=== PATIENT | female | born 1970 | race Hispanic/Latino ===

== ENCOUNTER 2018-02-13 20:55 | Observation (INO) | payer OTHER ==
[~2018-02-13] VITALS: Ht 160 cm; Wt 153.1 kg
[2018-02-13 21:49] LABS: BASOPHILS % 0.4 % (0.0-1.0); EOSINOPHILS # (AUTO) 0.2 (0.0-0.4); EOSINOPHILS % 1.5 % (0.0-6.0); HEMATOCRIT 40.6 % (34.2-44.1); HEMOGLOBIN 13.4 g/dL (12.0-16.0); LYMPHOCYTES # (AUTO) 3.3 (1.0-3.2); LYMPHOCYTES % 32.7 % (18.0-39.1); MEAN CORPUSCULAR VOLUME 90.8 fL (81-99); MONOCYTES # (AUTO) 0.6 (0.2-0.8); MONOCYTES % 6.2 % (4.4-11.3); NEUTROPHILS # (AUTO) 5.9 (2.1-6.9); NEUTROPHILS % 58.8 % (38.7-80.0); PLATELET COUNT 307 x10e3/uL (140-360); RED BLOOD COUNT 4.47 x10e6/uL (3.6-5.1); RED CELL DISTRIBUTION WIDTH 13.6 % (11.7-14.4)
--- NOTE | 2018-02-13 21:53 | Diagnostic Imaging Report ---
EXAMINATION: Head CT HISTORY: Syncope. COMPARISON: None. TECHNIQUE: Multidetector axial images were obtained without contrast from the foramen magnum to the vertex . The images were reconstructed using brain and bone algorithms. Thin section brain images were reformatted into coronal and sagittal planes. Motion/streaking artifact limits the evaluation of the skull base and posterior cranial fossa. FINDINGS: Parenchyma: 1. No abnormal densities. 2. No mass or hemorrhage. No CT evidence of acute territorial vascular insult. Extra-axial spaces:No abnormal density. No extra-axial fluid collections Brain volume: Normal for age. Ventricles: No hydrocephalus or displacement. Arteries: No density suggestive of thrombus. Dural sinuses: No abnormal density. Extra-axial spaces: No abnormal density. Foramen magnum: No mass, Chiari malformation, or basilar invagination. Sella: No obvious mass. Paranasal/mastoid sinuses: Imaged portions unremarkable. Skull/Scalp: No lytic or blastic lesions. No fractures. IMPRESSION: Normal head CT. Signed by: Dr. Isha Louis M.D. on 02/13/2018 9:49 PM
[2018-02-13 22:07] LABS: ALANINE AMINOTRANSFERASE 23 IU/L (0-55); ALBUMIN 3.2 g/dL (3.5-5.0); ALBUMIN/GLOBULIN RATIO 0.7 (0.8-2.0); ALKALINE PHOSPHATASE 130 IU/L (40-150); ANION GAP 15.9 mmol/L (8-16); BLOOD UREA NITROGEN 17 mg/dL (7-26); BUN/CREATININE RATIO 21 (6-25); CARBON DIOXIDE 23 mmol/L (22-29); CHLORIDE 105 mmol/L (98-107); CREATINE KINASE 89 IU/L (29-168); CREATININE, SERUM 0.82 mg/dL (0.57-1.11); EST GLOMERULAR FILTRATION RATE > 60 ML/MIN (60-); GLUCOSE 92 mg/dL (74-118); POTASSIUM 3.9 mmol/L (3.5-5.1); SODIUM 140 mmol/L (136-145)
--- NOTE | 2018-02-13 22:20 | Diagnostic Imaging Report ---
EXAMINATION: CHEST SINGLE (PORTABLE) INDICATION: Syncopal episode COMPARISON: None FINDINGS: TUBES and LINES: None. LUNGS: Lungs are not well inflated. There are bibasilar atelectasis. There is mild prominence of the central pulmonary vasculature, consistent with pulmonary venous congestion. PLEURA: No pleural effusion or pneumothorax. HEART AND MEDIASTINUM: The cardiomediastinal silhouette is unremarkable. BONES AND SOFT TISSUES: No acute osseous lesion. Soft tissues are unremarkable. UPPER ABDOMEN: No free air under the diaphragm. IMPRESSION: No acute thoracic abnormality. Signed by: Dr. Roge Williamson M.D. on 02/13/2018 10:17 PM
[2018-02-13] MEDS ORDERED: SODIUM CHLORIDE FLUSH 10 ML SYR INJ PRN (23:15)
[2018-02-13] MEDS ORDERED: ONDANSETRON HCL INJ 2 MG/ML VIAL IV PRN (23:15)
[2018-02-13] MEDS ORDERED: ASPIRIN 81 MG CHEW TAB PO ONE (23:15)
--- OUTSIDE RECORDS SUMMARY | 2018-02-13 23:35 | XMS REPORT ---
[facility] Address Unknown Phone Unavailable Care Team Providers Care English As A Second Language Instructor Name Role Phone DARINEL BROWNLEE Unavailable Unavailable Problems This patient has no known problems. Allergies, Adverse Reactions, Alerts This patient has no known allergies or adverse reactions. Medications This patient has no known medications. Results Test Description Test Time Test Comments Text Results Atomic Results Result Comments CT BRAIN WO [place] [address] Patient Name: MACK ULLOA MR #: [id number] : 1970 Age/Sex: 47/F Req #: [id number] Adm Physician: Ordered by: DARINEL BROWNLEE MD Report #: [id number] Location: ER Room/Bed: ___ Procedure: [id number] CT/CT BRAIN WO Exam Date: 02/13/18 Exam Time: 2129 REPORT STATUS: Signed EXAMINATION: Head CT HISTORY: Syncope. COMPARISON: None. TECHNIQUE: Multidetector axial images were obtained without contrast from the foramen magnum to the vertex . The images were reconstructed using brain and bone algorithms. Thin section brain images were reformatted into coronal and sagittal planes. Motion/streaking artifact limits the evaluation of the skull base and posterior cranial fossa. FINDINGS: Parenchyma: 1. No abnormal densities. 2. No mass or hemorrhage. No CT evidence of acute territorial vascular insult. Extra-axial spaces:No abnormal density. No extra-axial fluid collections Brain volume: Normal for age. Ventricles: No hydrocephalus or displacement. Arteries: No density suggestive of thrombus. Dural sinuses: No abnormal density. Extra-axial spaces: No abnormal density. Foramen magnum: No mass, Chiari malformation, or basilar invagination. Sella: No obvious mass. Paranasal/mastoid sinuses: Imaged portions unremarkable. Skull/ Scalp: No lytic or blastic lesions. No fractures. IMPRESSION: Normal head CT. Signed by: Dr. Brandon Louis M.D. on 02/13/2018 9:49 PM Dictated By: BRANDON LOUIS MD 48 COPY TO: DARINEL BROWNLEE MD CHEST SINGLE (PORTABLE) [place] [address] Patient Name: MACK ULLOA MR #: [id number] : 1970 Age/Sex: 47/F Req #: [id number] Adm Physician: Ordered by: DARINEL BROWNLEE MD Report #: [id number] Location: ER Room/Bed: ___ Procedure: [id number] DX/CHEST SINGLE (PORTABLE) Exam Date: 02/13/18 Exam Time: 2129 REPORT STATUS: Signed EXAMINATION: CHEST SINGLE (PORTABLE) INDICATION: Syncopal episode COMPARISON: None FINDINGS: TUBES and LINES: None. LUNGS: Lungs are not well inflated. There are bibasilar atelectasis. There is mild prominence of the central pulmonary vasculature, consistent with pulmonary venous congestion. PLEURA: No pleural effusion or pneumothorax. HEART AND MEDIASTINUM: The cardiomediastinal silhouette is unremarkable. BONES AND SOFT TISSUES: No acute osseous lesion. Soft tissues are unremarkable. UPPER ABDOMEN: No free air under the diaphragm. IMPRESSION: No acute thoracic abnormality. Signed by: Dr. Roge Williamson M.D. on 02/13/2018 10:17 PM Dictated By: ROGE ELIZONDO MD 16 COPY TO: DARINEL BROWNLEE MD
[2018-02-14] VITALS (7 sets, daily range): BP systolic 109–122; BP diastolic 53–71
[2018-02-14 00:09] LABS: CLARITY,URINE SL CLOUDY (CLEAR); COLOR,URINE AMBER (YELLOW); KETONES,URINE NEGATIVE (NEGATIVE); LEUKOCYTE ESTERASE ,URINE NEGATIVE (NEGATIVE); NITRITE,URINE NEGATIVE (NEGATIVE); PROTEIN,URINE DIPSTICK 1+ (NEGATIVE)
[2018-02-14 00:10] LABS: AMPHETAMINES SCREEN,URINE NEGATIVE (NEGATIVE); BENZODIAZEPINES SCREEN,URINE NEGATIVE (NEGATIVE); BILIRUBIN,URINE NEGATIVE (NEGATIVE); PHENCYCLIDINE SCREEN,URINE NEGATIVE (NEGATIVE); URINE UROBILINOGEN 0.2 mg/dL (0.2 - 1); WBC,URINE (MAN) 0-5 /HPF (0-5)
[2018-02-14 00:11] LABS: BACTERIA,URINE RARE /HPF; EPITHELIAL CELLS,URINE FEW /LPF; RBC,URINE 21-50 /HPF (0-5)
[2018-02-14] MEDS ORDERED: AMLODIPINE BESYL5 MG PO (02:05)
[2018-02-14] MEDS ORDERED: TENORMIN50 MG PO (02:05)
[2018-02-14] MEDS ORDERED: ASPIRIN81 MG PO (02:05)
[2018-02-14 05:43] LABS: BASOPHILS % 0.2 % (0.0-1.0); EOSINOPHILS # (AUTO) 0.1 (0.0-0.4); EOSINOPHILS % 1.5 % (0.0-6.0); HEMATOCRIT 38.6 % (34.2-44.1); HEMOGLOBIN 12.7 g/dL (12.0-16.0); LYMPHOCYTES # (AUTO) 2.8 (1.0-3.2); LYMPHOCYTES % 32.6 % (18.0-39.1); MEAN CORPUSCULAR HEMOGLOBIN 29.5 pg (28-32); MEAN CORPUSCULAR HGB CONC 32.9 g/dL (31-35); MEAN CORPUSCULAR VOLUME 89.6 fL (81-99); MONOCYTES # (AUTO) 0.5 (0.2-0.8); MONOCYTES % 5.6 % (4.4-11.3); NEUTROPHILS # (AUTO) 5.1 (2.1-6.9); NEUTROPHILS % 59.9 % (38.7-80.0); PLATELET COUNT 282 x10e3/uL (140-360); RED BLOOD COUNT 4.31 x10e6/uL (3.6-5.1); RED CELL DISTRIBUTION WIDTH 13.4 % (11.7-14.4)
[2018-02-14 06:06] LABS: ALANINE AMINOTRANSFERASE 21 IU/L (0-55); ALBUMIN 2.8 g/dL (3.5-5.0); ALBUMIN/GLOBULIN RATIO 0.7 (0.8-2.0); ALKALINE PHOSPHATASE 115 IU/L (40-150); ANION GAP 11.7 mmol/L (8-16); BLOOD UREA NITROGEN 15 mg/dL (7-26); BUN/CREATININE RATIO 24 (6-25); CALCIUM 8.5 mg/dL (8.4-10.2); CARBON DIOXIDE 25 mmol/L (22-29); CHLORIDE 106 mmol/L (98-107); CREATININE, SERUM 0.63 mg/dL (0.57-1.11); EST GLOMERULAR FILTRATION RATE > 60 ML/MIN (60-); GLUCOSE 110 mg/dL (74-118); POTASSIUM 3.7 mmol/L (3.5-5.1); SODIUM 139 mmol/L (136-145)
[2018-02-14 06:47] LABS: CREATINE KINASE 72 IU/L (29-168)
[2018-02-14] MEDS ORDERED: ACETAMINOPHEN 325 MG TAB PO PRN (07:30)
[2018-02-14] MEDS: ASPIRIN 81 MG CHEW TAB PO SCH (08:18)
[2018-02-14] MEDS: AMLODIPINE BESYLATE 5 MG TAB PO SCH ×2 (08:19→16:58)
[2018-02-14] MEDS: ATENOLOL 50 MG TAB PO SCH (08:19)
[2018-02-14 08:22] LABS: CHOL/HDL RATIO 5.4 (3.0-3.6)
[2018-02-14 08:36] LABS: THYROID STIMULATING HORMONE 2.742 uIU/mL (0.350-4.940)
--- NOTE | 2018-02-14 09:04 | Consultation ---
DATE OF CONSULTATION: February 13, 2018 CARDIOLOGY CONSULTATION REQUESTING PHYSICIAN: Dr. Garcia REASON FOR CONSULTATION: Syncope. HPI: This is a morbidly obese, 47-year-old female that presented with syncope. According to the patient, she was sitting down watching TV when she suddenly blacked out and was unresponsive for a few seconds. She stated her and son were at the bedside trying to wake her up. She did not fall. She was brought to the emergency room for evaluation. She has a history of high blood pressure and was on Norvasc and atenolol at home. She denies any chest pain, any palpitations, any dizziness, shortness of breath or diaphoresis. Troponin times [address] negative[address] showed no [address] abnormalities. She also complained of lightheadedness before the episode. PAST MEDICAL HISTORY: High blood pressure. SURGICAL HISTORY: . FAMILY HISTORY: Noncontributory. SOCIAL HISTORY: No smoking. No drinking. She lives at home with the son and fiancee. MEDICATIONS: She was on aspirin, atenolol and Norvasc at home. ALLERGIES: SHE IS NOT ALLERGIC TO ANY MEDICATION. REVIEW OF SYSTEMS: Negative, except as mentioned above. PHYSICAL EXAMINATION VITAL SIGNS: Temperature 97, heart rate 66, blood pressure 119/53, respirations 18, oxygen saturation 98% on room air. GENERAL: She is morbidly obese, awake, alert and oriented times 3. HEENT: Mucous membranes are moist. NECK: Supple. LUNGS: Bilaterally clear to auscultation. CARDIOVASCULAR: S1 and S2 present. ABDOMEN: Soft. NEUROLOGIC: Intact. EXTREMITIES: No edema. LABS: Sodium 139, potassium 3.7, chloride 106, CO2 25, BUN 16, creatinine 0.63, glucose 110. White blood cells 8.56, hemoglobin 12.7, hematocrit 38.6, platelets 282. IMPRESSION 1. Syncope. 2. High blood pressure. 3. Obesity. 4. Headache. ASSESSMENT AND PLAN: She had a CT of the head done that was normal. She also had a chest x-ray done with no abnormality. We will go ahead and get an echocardiogram to assess the LV and valve functions. We will also get bilateral carotid Doppler to rule out any occlusion. Continue her home medications. Check TSH and lipid panel. She might have possible vagal stimulation from the blood pressure dropping too suddenly from position change. She was counseled on weight reduction. Further cardiac workup pending clinical course. Thank you for this consultation. Dictated by Cayla Le NP Job#: [id number] MH
[2018-02-14 15:31] LABS: CREATINE KINASE 71 IU/L (29-168)
[2018-02-15] VITALS (7 sets, daily range): BP systolic 112–120; BP diastolic 56–69
[2018-02-15] MEDS: AMLODIPINE BESYLATE 5 MG TAB PO SCH (08:27)
[2018-02-15] MEDS: ATENOLOL 50 MG TAB PO SCH (08:27)
[2018-02-15] MEDS: ASPIRIN 81 MG CHEW TAB PO SCH (08:27)
[2018-02-15] MEDS ORDERED: ATORVASTATIN CA20 MG PO (13:43)
== END 2018-02-15 14:02 | disposition home or self-care (01) ==
LOC: ER 20:55 → ERHOLD 23:32 → MED/SURG 02-14 00:15
PROVIDERS: ADMIT Internal Medicine; ATTEND Internal Medicine
DX: R55 Syncope and collapse (principal); I10 Essential (primary) hypertension; E66.9 Obesity, unspecified; Z68.43 Body mass index [BMI] 50.0-59.9, adult; R51 Headache; R31.9 Hematuria, unspecified; E78.5 Hyperlipidemia, unspecified; D64.9 Anemia, unspecified
CPT/HCPCS: 36415 ×2; 70450; 71045; 80053 ×2; 80061; 80307; 81001; 82550 ×2; 82553 ×2; 84443; 84484 ×2; 85025 ×2; 93005 ×2; 93306; 93880; 96360; 97139; 99285; G0378 ×3

== ENCOUNTER 2020-07-20 06:27 | Emergency (ER) | payer OTHER ==
[~2020-07-20] VITALS: Ht 160 cm; Wt 152.9 kg
[~2020-07-20 06:27] MED LIST: AMLODIPINE BESYL5 MG PO; ASPIRIN81 MG PO; ATORVASTATIN CA20 MG PO; TENORMIN50 MG PO
[2020-07-20] MEDS ORDERED: IBUPROFEN 600 MG TAB PO STA (06:35)
--- NOTE | 2020-07-20 06:40 | Emergency Department Note ---
History of Present Illnes History of Present Illness Chief Complaint: Extremity Trauma/Pain History of Present Illness This is a 50 year old female Chief Complaint Comment Patient c/o bilateral knee weakness that started last night. Patient states she feels a tingling senation down right knee. Patient states when she got up this morning she felt like her knees were going to give out. Patient did take meloxicam last night. Patient able to ambulate with cane. No bowel/bladder issues/ She has ad this before and was told is was arthritis. Historian: Patient Arrival Mode: Car Warp Hand Required: No Onset (how long ago): day(s) (1) Location: Knees Quality: dull Radiation: Reports non-radiation Severity: mild Onset quality: gradual Duration (how long): hour(s) (1) Timing of current episode: intermittent Progression: partially resolved Chronicity: recurrent Context: Denies recent illness, Denies recent surgery Relieving factors: none Exacerbating factors: none Associated symptoms: Reports denies other symptoms Treatments prior to arrival: none Past Medical/Family History Physician Review I have reviewed the patient's past medical and family history. Any updates have been documented here. Past Medical History Recent Fever: No Clinical Suspicion of Infectio: No New/Unexplained Change in Ment: No Past Medical History: Hypertension, Hyperlipedemia Past Surgical History: Hysterectomy, Other Surgery: I&D OF A CYST Other Last Tetanus: UTD Review of Systems Review of Systems Constitutional: Reports no symptoms EENTM: Reports no symptoms Cardiovascular: Reports no symptoms Respiratory: Reports no symptoms Gastrointestinal: Reports no symptoms Genitourinary: Reports no symptoms Musculoskeletal: Reports as per HPI, Reports other (Knee pain bilateral R>L) Integumentary: Reports no symptoms Neurological: Reports no symptoms Psychological: Reports no symptoms Endocrine: Reports no symptoms Hematological/Lymphatic: Reports no symptoms Physical Exam Related Data Allergies: Coded Allergies: No Known Allergies (Unverified , 02/13/18) Triage Vital Signs Vital Signs Date Time Temp Pulse Resp B/P (MAP) Pulse Ox O2 Delivery O2 Flow Rate FiO2 07/20/20 06:30 98.0 88 20 189/100 95 Room Air Vital signs reviewed: Yes Physical Exam CONSTITUTIONAL Constitutional: Present well-developed, Present well-nourished HENT HENT: Present normocephalic, Present atraumatic, Present oropharynx clear/moist, Present nose normal HENT L/R: Present left ext ear normal, Present right ext ear normal EYES Eyes: Reports PERRL, Reports conjunctivae normal NECK Neck: Present ROM normal PULMONARY Pulmonary: Present effort normal, Present breath sounds normal CARDIOVASCULAR Cardiovascular: Present regular rhythm, Present heart sounds normal, Present capillary refill normal, Present normal rate GASTROINTESTINAL Abdominal: Present soft, Present nontender, Present bowel sounds normal GENITOURINARY Genitourinary: Present exam deferred SKIN Skin: Present warm, Present dry MUSCULOSKELETAL Musculoskeletal: Present ROM normal, Present other (Pulses 2+/euqal in BLE. No erythema or warm. No pain will passive ROM); Absent tenderness, Absent swelling NEUROLOGICAL Neurological: Present alert, Present oriented x 3, Present no gross motor or sensory deficits PSYCHOLOGICAL Psychological: Present mood/affect normal, Present judgement normal Assessment & Plan Medical Decision Making MDM 50-year-old female presents for bilateral knee pain, right greater than left. She states that this started last night and she tried meloxicam which moderately helped. She states the last time this is happened it was due to arthritis. Denies bowel or bladder issues. Diagnosis considered includes that he kind versus herniated disc versus arthritis versus acute osseous injury. Examination is largely unremarkable. X-rays of the knees bilaterally are additionally unremarkable. Diagnosis favors arthritis. She was given ibuprofen and Tylenol wi th moderate relief for symptoms. Instructed her on following up with primary care doctor and taking her meloxicam in addition to Tylenol for breakthrough pain. Patient states cream and plan she is appropriate for discharge. Reassessment Reassessment time: 06:40 Reassessment Well appearing, NAD Assessment & Plan Final Impression: (1) Knee pain Depart Disposition: HOME, SELF-CARE Last Vital Signs Date Time Temp Pulse Resp B/P (MAP) Pulse Ox O2 Delivery O2 Flow Rate FiO2 07/20/20 06:30 98.0 88 20 189/100 95 Room Air Home Meds Reported Medications Atorvastatin Calcium (ATORVASTATIN CALCIUM) 20 Mg Tablet, 20 MG PO HS, #30 TAB 02/15/18 Aspirin (ASPIRIN) 81 Mg Tab.chew, 81 MG PO DAILY 02/14/18 Amlodipine Besylate (AMLODIPINE BESYLATE) 5 Mg Tablet, 5 MG PO BID, #30 TAB 02/14/18 Atenolol (TENORMIN) 50 Mg Tablet, 25 MG PO DAILY, #30 TAB 02/14/18 LYNETTE CHACON MD Jul 20, 2020 06:40
[2020-07-20] MEDS ORDERED: ACETAMINOPHEN 325 MG TAB PO ONE (06:45)
--- NOTE | 2020-07-20 06:53 | NUR ---
Report to WALI Lizama
--- NOTE | 2020-07-20 07:51 | Diagnostic Imaging Report ---
X-ray right knee 3 views X-ray left knee 3 views HISTORY: Pain. COMPARISON: None available. FINDINGS: Bones: No acute displaced fracture. Osseous alignment is within normal limits. Joints: Medial tibiofemoral joint space Bilateral knee tricompartmental degenerative changes. Soft tissues: The soft tissues appear unremarkable. IMPRESSION: Bilateral knee degenerative changes, worst in the right knee medial tibiofemoral compartment. Signed by: Sukh Horton DO on 07/20/2020 7:48 AM
--- OUTSIDE RECORDS SUMMARY | 2020-07-20 08:18 | XMS REPORT | Continuity of Care Document ---
Author Author [facility] t Organization [facility] Address 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 Attphys Unavailable Mahendra BROWNLEE Attphys Unavailable Payers Payer Name Policy Type Policy Number Effective Date Expiration Date Bozena Milian o [id number] 2017 00:00:00 [facility] Problems Condition Name Condition Details Condition Category Status Onset Date Resolution Date Last Treatment Date Treating Clinician Comments Source History of hypertension History of hypertension Problem Resolved [facility] Endometriosis Endometriosis Problem Active [facility] Frequency of urination Frequency of urination Problem Active [facility] Encounter for weight loss counseling Encounter for weight lo ss counseling Problem Active [facility] Atypical endometrial hyperplasia Atypical endometrial hyperplasi a Problem Active [facility] Bacterial vaginosis Bacterial vaginosis Problem Active [facility] Ella infection Ella infection Problem Active [facility] Syncope and collapse Syncope and collapse Problem Active [facility] Allergies, Adverse Reactions, Alerts This patient has no known allergies or adverse reactions. Family History Family Member Diagnosis Comments Start Date Stop Date Source Grandmother Family history of malignant neoplasm of breast [facility] Grandmother Family history of malignant neoplasm of thyroid [facility] aunt Family history of malignant neoplasm of breast [facility] Mother Family history of malignant neoplasm of breast [facility] Mother Family history of malignant neoplasm of thyroid [facility] Social History Smoking Status Start Date Stop Date Source [facility] smoked tobacco (finding[facility] Medications Ordered Medication Name Filled Medication Name Start Date Stop Da te Current Medication? Ordering Clinician Indication Dosage Frequency Signature (SIG) Comments Components Source metroNIDAZOLE 500 MG Oral Tablet metroNIDAZOLE 500 MG Oral T ablet 2019-02-09 00:00:00 Yes DANIEL TENA APRN Q0.5D TAKE 1 TABLET TWICE DAILY UNTIL FINISHED. [facility] Nystatin Powder Nystatin Powder 2019-02-09 00:00:00 Yes DANIEL TENA APRN Nystatin topical powder 100,000 unit/gram [facility] Atenolol 50 MG Oral Tablet Atenolol 50 MG Oral Tablet 2018-09-08 00:0 0:00 Yes [facility] amLODIPine Besylate 10 MG Oral Tablet amLODIPine Besylate 10 MG Oral Tablet 2018-09-08 00:00:00 Yes [facility] Amlodipine Besylate 5 Mg Tablet Amlodipine Besylate 5 Mg Tablet Yes 5 Twice A Day [facility] Aspirin 81 Mg Tab.chew Aspirin 81 Mg Tab.chew Yes 81 Daily [facility] Atenolol (Tenormin) 50 Mg Tablet Atenolol (Tenormin) 50 Mg Tablet Yes 25 Daily [facility] Atorvastatin Calcium 20 Mg Tablet Atorvastatin Calcium 20 Mg Tablet Yes 20 Bedtime [facility] Vital Signs Vital Name Observation Time Observation Value Comments Source BP Systolic 2019-02-09 11:31:00 128 mm[Hg] Location: RUE; Positi on: Sitting [facility] BP Diastolic 2019-02-09 11:31:00 88 mm[Hg] Location: RUTheresa; Positi on: Sitting [facility] Height 2019-02-09 11:31:00 155 cm [facility] Weight 2019-02-09 11:31:00 155 kg [facility] Body Mass Index Calculated 2019-02-09 11:31:00 64.52 kg/m2 [facility] Temperature 2019-02-09 11:31:00 97.8 [degF] Method: Oral [facility] Heart Rate 2019-02-09 11:31:00 88 /min [facility] Respiration Rate 2019-02-09 11:31:00 20 /min [facility] BP Systolic 2018-11-17 10:22:00 147 mm[Hg] Location: LLE; Positi on: Sitting [facility] BP Diastolic 2018-11-17 10:22:00 92 mm[Hg] Location: LLE; Positi on: Sitting [facility] Height 2018-11-17 10:22:00 156.1 cm [facility] Weight 2018-11-17 10:22:00 339.125 [lb_av] Unive [facility] Body Mass Index Calculated 2018-11-17 10:22:00 63.13 kg/m2 [facility] Temperature 2018-11-17 10:22:00 98.5 [degF] Method: Oral [facility] Heart Rate 2018-11-17 10:22:00 73 /min [facility] Respiration Rate 2018-11-17 10:22:00 17 /min Quality: Normal [facility] BP Systolic 2018-09-08 13:35:00 118 mm[Hg] Location: RUE; Positi on: Sitting [facility] BP Diastolic 2018-09-08 13:35:00 83 mm[Hg] Location: RUE; Positi on: Sitting [facility] Height 2018-09-08 13:35:00 62 [in_us] [facility] Weight 2018-09-08 13:35:00 328 [lb_av] [facility] Body Mass Index Calculated 2018-09-08 13:35:00 59.99 kg/m2 [facility] Temperature 2018-09-08 13:35:00 97.9 [degF] Method: Oral [facility] Heart Rate 2018-09-08 13:35:00 53 /min [facility] Respiration Rate 2018-09-08 13:35:00 18 /min [facility] Procedures Procedure Date / Time Performed Performing Clinician Jeffrey Rizzo - Affirm VPIII (BV Panel) 2019-02-09 00:00:00 [facility] [[facility]] URINALYSIS, COMPLETE W/REFLEX TO CULTURE 2018-11-20 00:00: 00 [facility] [[facility]] CULTURE, URINE, ROUTINE 2018-11-17 00:00:00 [facility] [[facility]] CA 125 2018-09-08 00:00:00 [facility] [[facility]] CBC (INCLUDES DIFF/PLT) 2018-09-08 00:00:00 [facility] Computed tomography of brain without radiopaque contrast 201 06-14-05 00:00:00 DARINEL BROWNLEE [facility] History of section [facility] History of Tubal ligation [facility] Encounters Start Date/Time End Date/Time En[facility] Source 2019-02-09 13:20:00 2019-02-09 13:20:00 Appointment; NOLBERTO KANG M.D. LUCCI, JOSEPH, M.D. [facility] Obstetrics [facility] [id number] [facility] 2018-11-17 10:20:00 2018-11-17 10:20:00 Appointment; NOLBERTO KANG M.D. LUCCI, JOSEPH, M.D. [facility] [place] [facility] [id number] [facility] 2018-10-31 07:30:00 2018-10-31 07:30:00 Appointment; NOLBERTO KANG M.D. LUCCI, JOSEPH, M.D. UTP [facility] [id number] [facility] 2018-09-08 13:00:00 2018-09-08 13:00:00 Appointment; NOLBERTO KANG M.D. LUCCI, JOSEPH, M.D. [facility] [place] [id number] [facility] 2018-02-13 23:32:00 2018-02-15 14:02:00 Discharged Inpatient (obs) ER DARINEL BROWNLEE [facility] [id number] [facility] Results Test Description Test Time Test Comments Results Result Comments Source KNEE RIGHT THREE VIEWS 2020-07-20 07:40:00 [facility] [address] [place] [address] Patient Name: MACK ULLOA MR #: [id number] : 1970 Age/Sex: 50/F Req #: [id number] Adm Physician: Ordered by: Lynette Burr MD Report #: [id number] Location: ER Room/Bed: Procedure: DX/KNEE RIGHT THREE VIEWS Exam Date: 07/20/20 Exam Time: 644 REPORT STATUS: Signed X-ray right knee 3 views X-ray left knee 3 views HISTORY: Pain. COMPARISON: None available. FINDINGS: Bones: No acute displaced fracture. Osseous alignment is within normal limits. Joints: Medial tibiofemoral joint space Bilateral knee tricompartmental degenerative changes. Soft tissues: The soft tissues appear unremarkable. IMPRESSION: Bilateral knee degenerative changes, worst in the right knee medial tibiofemoral compartment. Signed by: Skuh Castro DO on 07/20/2020 7:48 AM Dictated By: SUKH CASTRO DO 7 Transcribed By: MONICA on 07/20/20747 COPY TO: LYNETTE BURR MD KNEE LEFT THREE VIEWS 2020-07-20 07:40:00 [place] [address] Patient Name: MACK ULLOA MR #: [id number] : 1970 Age/Sex: 50/F Req #: [id number] Adm Physician: Ordered by: Lynette Burr MD Report #: [id number] Location: Room/Bed: Procedure: DX/KNEE LEFT THREE VIEWS Exam Date: 07/20/20 Exam Time: 644 REPORT STATUS: Signed X-ray right knee 3 views X-ray left knee 3 views HISTORY: Pain. COMPARISON: None available. FINDINGS: Bones: No acute displaced fracture. Osseous alignment is within normal limits. Joints: Medial tibiofemoral joint space Bilateral knee tricompartmental degenerative changes. Soft tissues: The soft tissues appear unremarkable. IMPRESSION: Bilateral knee degenerative changes, worst in the right knee medial tibiofemoral compartment. Signed by: Sukh Castro DO on 07/20/2020 7:48 AM Dictated By: SUKH CASTRO DO 7 Transcribed By: MONICA on 07/20/20747 COPY TO: LYNETTE BURR MD . [facility] - Affirm VPIII (BV Panel) 2019-02-09 00:00:00 Test Item Affirm VPIII (BV Panel) REPORT (test code = Affirm VPI II (BV Panel) REPORT) See Comment [facility]] CULTURE, URINE, [id number] 00:00:01* Test Item Value Reference Range Interpretation Comments FINAL REPORT (test code = FINAL REPORT) 10,000 - 50,000 CFU/mL Ski n Patt [facility]] CBC (INCLUDES DIFF/PLT)2018-09-08 14:52:01* Test Item Value Reference Range Interpretation Comments WBC (test code = 6690-2) 8.7 {K/CMM} 3.7-10.4 RBC (test code = 789-8) 4.48 {M/CMM} 4.20-5.40 Hgb (test code = 718-7) 13.7 g/dl 12.0-16.0 Hct (test code = 97929-5) 41.6 % 36.0-48.0 MCV (test code = 787-2) 92.9 fL 80.0-98.0 MCH (test code = 785-6) 30.5 pg 27.0-31.0 MCHC (test code = 786-4) 32.9 g/dl 32.0-36.0 RDW (test code = 788-0) 13.9 % 11.5-14.5 Platelet (test code = 99591-9) 376 {K/CMM} 133-450 Mean Platelet Volume (test code = 56118-6) 9.6 fL 7.4-10.4 [facility] Hzfrnnifsttg9647-04-46 14:52:01* Test Item Value Reference Range Interpretation Comments Segmented Neutrophils (test code = 40375-5) 68.0 % 45.0-75.0 Monocytes (test code = 23198-0) 7.7 % 2.0-12.0 Lymphocytes (test code = 16934-1) 22.2 % 20.0-40.0 Eosinophils (test code = 12721-9) 1.7 % 0.0-4.0 Basophils (test code = 706-2) 0.4 % 0.0-1.0 Segs-Bands # (test code = 59360-9) 5.9 {K/CMM} 1.5-8.1 Lymphocytes # (test code = 43236-5) 1.9 {K/CMM} 1.0-5.5 Monocytes # (test code = 35262-8) 0.7 {K/CMM} 0.0-0.8 Eosinophils # (test code = 04646-8) 0.1 {K/CMM} 0.0-0.5 [facility]] [place] [id number] 14:52:01* Test Item Value Reference Range Interpretation Comments Cancer Antigen 125 (test code = 36681-9) 23.8 U/ml 0.0-35.0 [facility] PhysiciansCreatine Kinase OQ9517-14-09 15:39:00* Test Item Value Reference Range Interpretation Comments Creatine Kinase MB (test code = 07365-0) 0.90 0-5.0 [facility] HospitalTroponin [id number] 15:39:00* Test Item Value Reference Range Interpretation Comments Troponin I (test code = YWN0010) -0.001 0-0.300 [facility] HospitalCreatine Zblpii0761-13-36 15:33:00* Test Item Value Reference Range Interpretation Comments Creatine Kinase (test code = 2157-6) 71 29-168 [facility] HospitalThyroid Stimulating Hormone (TSH) 2018-02-14 08:37:00* Test Item Value Reference Range Interpretation Comments Thyroid Stimulating Hormone (TSH) (test code = 15280-1) 2.742 0.350-4.940 [facility] HospitalTriglycerides Jhzns4806-25-37 08:23:00* Test Item Value Reference Range Interpretation Comments Triglycerides Level (test code = 2571-8) 262 0-149 H [facility] HospitalCholesterol Yfjnj0623-48-79 08:23:00* Test Item Value Reference Range Interpretation Comments Cholesterol Level (test code = 2093-3) 222 0-199 H Less than 200 mg/dL Low Vhpm922 - 239 mg/dL Borderline Cyjo853 m g/dl and greater High Risk [facility] HospitalLDL Uyxuefjozmw7876-43-48 08:23:00* Test Item Value Reference Range Interpretation Comments LDL Cholesterol (test code = 2089-1) 129 60-130 [facility] HospitalHDL Gnileibjvho4816-98-78 08:23:00* Test Item Value Reference Range Interpretation Comments HDL Cholesterol (test code = 2085-9) 41 40-60 [facility] HospitalCholesterol/HDL Qmbth9521-04-58 08:23:00 * Test Item Value Reference Range Interpretation Comments Cholesterol/HDL Ratio (test code = 9830-1) 5.4 3.0-3.6 [facility] Sffnb8091-21-99 06:08:00* Test Item Value Reference Range Interpretation Comments Sodium Level (test code = 2951-2) 139 136-145 [facility] HospitalPotassium Yhiux4190-06-71 06:08:00* Test Item Value Reference Range Interpretation Comments Potassium Level (test code = 2823-3) 3.7 3.5-5.1 [facility] HospitalChloride Ijtot2694-73-68 06:08:00* Test Item Value Reference Range Interpretation Comments Chloride Level (test code = 2075-0) 106 98-107 [facility] HospitalCarbon Dioxide Pkizy0579-85-46 06:08:00* Test Item Value Reference Range Interpretation Comments Carbon Dioxide Level (test code = 2028-9) 25 22-29 [facility] HospitalAnion [id number] 06:08:00* Test Item Value Reference Range Interpretation Comments Anion Gap (test code = 83336-1) 11.7 8-16 [facility] HospitalBlood Urea Kqfyyomv3842-16-81 06:08:00* Test Item Value Reference Range Interpretation Comments Blood Urea Nitrogen (test code = 3094-0) 15 7-26 [facility] HospitalCreatinine2018-04-06 06:08:00* Test Item Value Reference Range Interpretation Comments Creatinine (test code = 2160-0) 0.63 0.57-1.11 [facility] HospitalBUN/Creatinine Lodlw2434-64-96 06:08:00* Test Item Value Reference Range Interpretation Comments BUN/Creatinine Ratio (test code = 3097-3) 24 6-25 [facility] HospitalEstimat Glomerular Filtration Rate 2018-02-14 06:08:00* Test Item Value Reference Range Interpretation Comments Estimat Glomerular Filtration Rate (test code = 79985-4) 60- >60 Ranges were taken from the National Kidney Disease Education Program and the [facility] [employer] literature.Reference ranges:60 or greater: Yotdjc48-44 ( for 3 consecutive months): Chronic kidney disease 15 or less: Kidney failureSouth Texas Spine & Surgical HospitalGlucose Bfklc3148-32-91 06:08:00* Test Item Value Reference Range Interpretation Comments Glucose Level (test code = RMU9705) 110 74-118 [facility] HospitalCalcium Mjumk2723-36-94 06:08:00* Test Item Value Reference Range Interpretation Comments Calcium Level (test code = 86611-5) 8.5 8.4-10.2 [facility] HospitalTotal Gxserffja6783-03-87 06:08:00* Test Item Value Reference Range Interpretation Comments Total Bilirubin (test code = 1975-2) 0.4 0.2-1.2 [facility] HospitalAspartate Amino Transf (AST/SGOT) 2018-02-14 06:08:00* Test Item Value Reference Range Interpretation Comments Aspartate Amino Transf (AST/SGOT) (test code = Aspartate Amino Transf (AST/SGOT)) 18 5-34 [facility] HospitalAlanine Aminotransferase (ALT/SGPT) 2018-02-14 06:08:00* Test Item Value Reference Range Interpretation Comments Alanine Aminotransferase (ALT/SGPT) (test code = 1742-6) 21 0-55 [facility] HospitalTotal Enhyrkf7581-14-92 06:08:00* Test Item Value Reference Range Interpretation Comments Total Protein (test code = 2885-2) 7.0 6.5-8.1 [facility] HospitalAlbumin2018-04-06 06:08:00* Test Item Value Reference Range Interpretation Comments Albumin (test code = 1751-7) 2.8 3.5-5.0 L [facility] HospitalGlobulin2018-04-06 06:08:00* Test Item Value Reference Range Interpretation Comments Globulin (test code = 94373-5) 4.2 2.3-3.5 H [facility] HospitalAlbumin/Globulin Rgscb4094-11-33 06:08:00 * Test Item Value Reference Range Interpretation Comments Albumin/Globulin Ratio (test code = 1759-0) 0.7 0.8-2.0 L [facility] HospitalAlkaline Xkgjoacfkcy9168-90-35 06:08:00* Test Item Value Reference Range Interpretation Comments Alkaline Phosphatase (test code = 6768-6) 115 40-150 [facility] HospitalWhite Blood Xmeft3572-59-39 05:59:00* Test Item Value Reference Range Interpretation Comments White Blood Count (test code = 6690-2) 8.56 4.8-10.8 [facility] HospitalRed Blood Goifa5588-58-65 05:59:00* Test Item Value Reference Range Interpretation Comments Red Blood Count (test code = 789-8) 4.31 3.6-5.1 [facility] HospitalHemoglobin2018-04-06 05:59:00* Test Item Value Reference Range Interpretation Comments Hemoglobin (test code = 13798-6) 12.7 12.0-16.0 [facility] HospitalHematocrit2018-04-06 05:59:00* Test Item Value Reference Range Interpretation Comments Hematocrit (test code = 4544-3) 38.6 34.2-44.1 [facility] HospitalMean Corpuscular Ifxydy5921-97-02 05:59:00* Test Item Value Reference Range Interpretation Comments Mean Corpuscular Volume (test code = 787-2) 89.6 81-99 [facility] HospitalMean Corpuscular Gpxcvdzhqk9153-07-54 05:59:00* Test Item Value Reference Range Interpretation Comments Mean Corpuscular Hemoglobin (test code = 785-6) 29.5 28-32 [facility] Hemoglobin Concent 2018-02-14 05:59:00* Test Item Value Reference Range Interpretation Comments Mean Corpuscular Hemoglobin Concent (test code = 786-4) 32.9 31-35 [facility] HospitalRed Cell Distribution Bxxli6252-31-35 05:59:00* Test Item Value Reference Range Interpretation Comments Red Cell Distribution Width (test code = 09056-6) 13.4 11.7 -14.4 [facility] HospitalPlatelet Bvzzm7894-40-23 05:59:00* Test Item Value Reference Range Interpretation Comments Platelet Count (test code = 777-3) 282 140-360 [facility] HospitalNeutrophils (%) (Auto)2018-02-14 05:59:00 * Test Item Value Reference Range Interpretation Comments Neutrophils (%) (Auto) (test code = 35872-5) 59.9 38.7-80.0 [facility] HospitalLymphocytes (%) (Auto)2018-02-14 05:59:00 * Test Item Value Reference Range Interpretation Comments Lymphocytes (%) (Auto) (test code = 736-9) 32.6 18.0-39.1 [facility] HospitalMonocytes (%) (Auto)2018-02-14 05:59:00* Test Item Value Reference Range Interpretation Comments Monocytes (%) (Auto) (test code = 5905-5) 5.6 4.4-11.3 [facility] HospitalEosinophils (%) (Auto)2018-02-14 05:59:00 * Test Item Value Reference Range Interpretation Comments Eosinophils (%) (Auto) (test code = 713-8) 1.5 0.0-6.0 [facility] HospitalBasophils (%) (Auto)2018-02-14 05:59:00* Test Item Value Reference Range Interpretation Comments Basophils (%) (Auto) (test code = 706-2) 0.2 0.0-1.0 [facility] HospitalIM GRANULOCYTES %2018-02-14 05:59:00* Test Item Value Reference Range Interpretation Comments IM GRANULOCYTES % (test code = IM GRANULOCYTES %) 0.2 0.0- 1.0 [facility] HospitalNeutrophils # (Auto)2018-02-14 05:59:00* Test Item Value Reference Range Interpretation Comments Neutrophils # (Auto) (test code = 751-8) 5.1 2.1-6.9 [facility] HospitalLymphocytes # (Auto)2018-02-14 05:59:00* Test Item Value Reference Range Interpretation Comments Lymphocytes # (Auto) (test code = 86839-1) 2.8 1.0-3.2 [facility] HospitalMonocytes # (Auto)2018-02-14 05:59:00* Test Item Value Reference Range Interpretation Comments Monocytes # (Auto) (test code = 742-7) 0.5 0.2-0.8 [facility] HospitalEosinophils # (Auto)2018-02-14 05:59:00* Test Item Value Reference Range Interpretation Comments Eosinophils # (Auto) (test code = 711-2) 0.1 0.0-0.4 [facility] HospitalBasophils # (Auto)2018-02-14 05:59:00* Test Item Value Reference Range Interpretation Comments Basophils # (Auto) (test code = 704-7) 0.0 0.0-0.1 [facility] HospitalAbsolute Immature Granulocyte (auto 2018-02-14 05:59:00* Test Item Value Reference Range Interpretation Comments Absolute Immature Granulocyte (auto (mk t code = Absolute Immature Granulocyte (auto) 0.02 0-0.1 [facility] HospitalUrine Vajib5239-72-38 00:11:00* Test Item Value Reference Range Interpretation Comments Urine Color (test code = 5778-6) JEWELS YELLOW H [facility] HospitalUrine Rfuyfxu2749-47-60 00:11:00* Test Item Value Reference Range Interpretation Comments Urine Clarity (test code = 78579-4) SL CLOUDY CLEAR [facility] HospitalUrine Specific Jbkqezh1135-01-95 00:11:00 * Test Item Value Reference Range Interpretation Comments Urine Specific [place] (test code = 5811-5) 1.025 1.010-1.02 5 [facility] HospitalUrine [id number] 00:11:00* Test Item Value Reference Range Interpretation Comments Urine pH (test code = 49694-6) 6.5 5-7 [facility] HospitalUrine Leukocyte Ssjcblnl9809-28-49 00:11:00* Test Item Value Reference Range Interpretation Comments Urine Leukocyte Esterase (test code = 5799-2) NEGATIVE NEGATIVE [facility] HospitalUrine Pywshtp1789-47-33 00:11:00* Test Item Value Reference Range Interpretation Comments Urine Nitrite (test code = 20157-1) NEGATIVE NEGATIVE [facility] HospitalUrine Pesrbwj7998-76-81 00:11:00* Test Item Value Reference Range Interpretation Comments Urine Protein (test code = 5804-0) 1+ NEGATIVE H [facility] HospitalUrine Glucose (UA)2018-02-14 00:11:00* Test Item Value Reference Range Interpretation Comments Urine Glucose (UA) (test code = 2349-9) NEGATIVE NEGATIVE [facility] HospitalUrine Xdfdweo9492-81-71 00:11:00* Test Item Value Reference Range Interpretation Comments Urine Ketones (test code = 46643-9) NEGATIVE NEGATIVE [facility] HospitalUrine Opiates Ajvyea4466-97-45 00:11:00* Test Item Value Reference Range Interpretation Comments Urine Opiates Screen (test code = 59370-0) NEGATIVE NEGATIVE [facility] HospitalUrine Barbiturates Ckgksp2888-12-06 00:11:00* Test Item Value Reference Range Interpretation Comments Urine Barbiturates Screen (test code = 677461380) NEGATIVE NEGA TIVE [facility] HospitalUrine Phencyclidine Qbtmkv8572-32-98 00:11:00* Test Item Value Reference Range Interpretation Comments Urine Phencyclidine Screen (test code = 71859-6) NEGATIVE NEGAT ROMEO [facility] HospitalUrine Amphetamines Rbnnlk7832-99-26 00:11:00* Test Item Value Reference Range Interpretation Comments Urine Amphetamines Screen (test code = 21994-6) NEGATIVE NEGATI VE [facility]hetamines [id number] 00:11:00* Test Item Value Reference Range Interpretation Comments Urine Methamphetamines Screen (test code = Urine Metha mphetamines Screen) NEGATIVE NEGATIVE [facility] Benzodiazep[facility] [id number] 00:11:00* Test Item Value Reference Range Interpretation Comments Urine Benzodiazepines Screen (test code = 18792-2) NEGATIVE NEG ATIVE [facility] Cocaine [id number] 00:11:00* Test Item Value Reference Range Interpretation Comments Urine Cocaine Screen (test code = 3398-5) NEGATIVE NEGATIVE [facility] Cannabinoids [id number] 00:11:00* Test Item Value Reference Range Interpretation Comments Urine Cannabinoids Screen (test code = 73699-8) NEGATIVE NEGATI VE THESE RESULTS ARE FOR MEDICAL TREATMENT ONLYTHIS REPORT CONTAINS UNCONFIR MED SCREENING RESULTS*POSITIVE RESULTS WILL BE CONFIRMED BY REFERENCE LAB UPON R EQUEST CUT-OFFDRUG CLASS CONCENTRATION ng/mLAmphetamines 1000Methamphetamines 1000Cocaine 300Opiate 300Phencyc lidine 25Cannabinoid 50Barbiturates 300Benzodiazepine 300Methadone 300[facility] Methadone [id number] 00:11:00* Test Item Value Reference Range Interpretation Comments Urine Methadone Screen (test code = 26859-1) NEGATIVE NEGATIVE THESE RESULTS ARE FOR MEDICAL TREATMENT ONLYTHIS REPORT CONTAINS UNCONFIR MED SCREENING RESULTS*POSITIVE RESULTS WILL BE CONFIRMED BY REFERENCE LAB UPON R EQUEST CUT-OFFDRUG CLASS CONCENTRATION ng/mLAmphetamines 1000Methamphetamines 1000Cocaine Metabolite 300Opiate 300Phencyc lidine 25Cannabinoid 50Barbiturates 300Benzodiazepine 300Methadone 300[facility] [id number] 00:11:00* Test Item Value Reference Range Interpretation Comments Urine Urobilinogen (test code = 84836-2) 0.2 0.2-1 [facility] [id number] 00:11:00* Test Item Value Reference Range Interpretation Comments Urine Bilirubin (test code = 1978-6) NEGATIVE NEGATIVE [facility] [id number] 00:11:00* Test Item Value Reference Range Interpretation Comments Urine Blood (test code = 41429-2) 3+ NEGATIVE H [facility] [id number] 00:11:00* Test Item Value Reference Range Interpretation Comments Urine WBC (test code = 5821-4) 0-5 0-5 [facility] [id number] 00:11:00* Test Item Value Reference Range Interpretation Comments Urine RBC (test code = 39899-6) 21-50 0-5 H [facility] Eqgzguau0762-43-03 00:11:00* Test Item Value Reference Range Interpretation Comments Urine Bacteria (test code = 52383-1) RARE NONE [facility] Epithelial Prtmw8834-03-14 00:11:00 * Test Item Value Reference Range Interpretation Comments Urine Epithelial Cells (test code = 87865-2) FEW NONE [facility] [address] [place] [address] Patient Name: MACK ULLOA MR #: [id number] : 1970 Age/Sex: 47/F Req #: [id number] Adm Physician: Ordered by: DARINEL BROWNLEE MD Report #: [id number] Location: Room/Bed: Procedure: [id number] CT/CT BRAIN JIGAR james Date: 02/13/18 Exam Time: 2129 REPORT STATUS: Signed EXAMINATION: Head CT HISTORY: Syncope. COMPARISON: None. TE CHNIQUE: Multidetector axial images were obtained without contrast from the f oramen magnum to the vertex . The images were reconstructed using brain and beatriz ne algorithms. Thin section brain images were reformatted into coronal and sa gittal planes. Motion/streaking artifact limits the evaluation of the skull ba se and posterior cranial fossa. FINDINGS: Parenchyma: 1. No abnormal densities. 2. No mass or hemorrhage. No CT evidence of acute territ orial vascular insult. Extra-axial spaces:No abnormal density. No extra-axial fluid collections Brain volume: Normal for age. V entricles: No hydrocephalus or displacement. Arteries: No density sugge stive of thrombus. Dural sinuses: No abnormal density. Extra-axi al spaces: No abnormal density. Foramen magnum: No mass, Chiari malforma tion, or basilar invagination. Sella: No obvious mass. Paranasa l/mastoid sinuses: Imaged portions unremarkable. Skull/Scalp: No lytic o r blastic lesions. No fractures. IMPRESSION: Normal head CT. Si gned by: Dr. Brandon Louis M.D. on 02/13/2018 9:49 PM Dictated By: BRANDON RICHARDSON MD 48 Transcribed By : MONICA on 02/13/182148 COPY TO: DARINEL BROWNLEE MD CHEST SINGLE (PORTABLE) [place] [address] Patient Name: MACK ULLOA MR #: [id number] : 1970 Age/Sex: 47/F Req #: [id number] Adm Physician: Ordered by: DARINEL BROWNLEE MD Report #: [id number] Location: ER Room/Bed: Procedure: [id number] DX/CHEST SINGLE (PO RTABLE) Exam Date: 02/13/18 Exam Time: 2130 RE PORT STATUS: Signed EXAMINATION: CHEST SINGLE (PORTABLE) INDICATION : Syncopal episode COMPARISON: None FINDINGS: TUBES and LINES: None. LUNGS: Lungs are not well inflated. There are bibasila r atelectasis. There is mild prominence of the central pulmonary vasculature , consistent with pulmonary venous congestion. PLEURA: No pleural effusi on or pneumothorax. HEART AND MEDIASTINUM: The cardiomediastinal silhouett e is unremarkable. BONES AND SOFT TISSUES: No acute osseous lesion. S oft tissues are unremarkable. UPPER ABDOMEN: No free air under the diaphr agm. IMPRESSION: No acute thoracic abnormality. Signed by: Luz Marina Williamson M.D. on 02/13/2018 10:17 PM Dictated By: BRIAN KHAN RA, MD 16 Trans cribed By: MONICA on 02/13/182216 COPY TO: DARINEL BROWNLEE MD
== END 2020-07-20 08:08 | disposition home or self-care (01) ==
LOC: ER 06:30
DX: M25.562 Pain in left knee (principal); M25.561 Pain in right knee; I10 Essential (primary) hypertension; E78.5 Hyperlipidemia, unspecified
CPT/HCPCS: 99283

== ENCOUNTER 2021-08-24 23:44 | Emergency (ER) | payer OTHER ==
[~2021-08-24] VITALS: Ht 160 cm; Wt 167.8 kg
[2021-08-25] MEDS ORDERED: KETOROLAC TROMETHAMINE 60 MG/2 ML VIAL IM ONE (02:00)
[2021-08-25] MEDS ORDERED: ORPHENADRINE CITRATE 30 MG/ML VIAL IM ONE (02:00)
== END 2021-08-25 02:22 | disposition home or self-care (01) ==
LOC: ER 08-25 00:16
DX: S16.1XXA Strain of muscle, fascia and tendon at neck level, initial encounter (principal); S39.012A Strain of muscle, fascia and tendon of lower back, initial encounter; M54.6 Pain in thoracic spine; M25.562 Pain in left knee; V43.52XA Car driver injured in collision with other type car in traffic accident, initial encounter; Y92.488 Other paved roadways as the place of occurrence of the external cause
CPT/HCPCS: 72125; 72128; 72131; 73560; 99283; J1885; J2360